=== PATIENT | female | born 1980 | race African-American/Black ===

== ENCOUNTER 2016-09-06 14:21 | Emergency (ER) | payer OTHER ==
--- NOTE | ~2016-09-06 | CR172 ---
[facility] A Service of [facility] RADIOLOGY TEXT RESULTS PATIENT: SHARI KRAMER LOCATION: [facility] : 76 UNIT #: [id number] AGE: [address]: Jose Connell MD SEX: F ORDER DR: [id number] [facility] [address] [place], [place] [address] [id number] E MR#: [id number] Acc #: [id number] NAME: SHARI KRAMER : 1980 SEX: F STUDY DATE/TIME: 09/06/2016 15:26 UNIT: [facility] ROOM: STUDY DESCRIPTION: CR Knee 3 Views Lt Attending Physician: Jose Connell M.D. Ordering Physician: [facility] Primary Care Physician: No Primary Care Physician MEDICAL IMAGING REPORT This report is preliminary unless electronic signature is present EXAM 3 views of the left knee 09/06/2016 HISTORY Pain and swelling, left thigh spasms starting 2 weeks ago. No known injury. FINDINGS No acute fracture or subluxation of the left knee is identified. There is no suprapatellar effusion. Patient really has minimal degenerative change. No aggressive osseous abnormalities are seen. IMPRESSION Negative. Dictated by... April Byrd M.D. THIS IS AN ELECTRONICALLY VERIFIED REPORT April Byrd M.D. at 09/07/2016 5:23 PM AFF/enrique TD: 09/06/2016 18:07 JOB #: [id number] MEDICAL IMAGING REPORT Page 1 of 1 COPY
--- NOTE | ~2016-09-06 | CT71 ---
[facility] A Service of [facility] RADIOLOGY TEXT RESULTS PATIENT: SHARI KRAMER LOCATION: [facility] : 76 UNIT #: [id number] AGE: [address]: Jose Connell MD SEX: F ORDER DR: [id number] [facility] [address] [place], [place] [address] [id number] E MR#: [id number] Acc #: [id number] NAME: SHARI KRAMER : 1980 SEX: F STUDY DATE/TIME: 09/06/2016 16:27 UNIT: [facility] ROOM: STUDY DESCRIPTION: CT Head Wo Contrast Attending Physician: Jose Connell M.D. Ordering Physician: Ed Doctor [id number] [facility] Primary Care Physician: Primary Care Physician No MEDICAL IMAGING REPORT This report is preliminary unless electronic signature is present EXAM CT head INDICATION Headache. Nausea. Frontal headache. Numbness in the lips. Facial numbness. TECHNIQUE CT of the head without contrast. This CT exam was performed with one or more of the following radiation dose reduction techniques: automatic exposure control, adjustment of mA and/or kV according to patient size, and iterative reconstruction. COMPARISON None available. FINDINGS Axial noncontrast images were obtained from the skull base to the vertex. Ventricular size and configuration are normal. There is no evidence of acute infarct or hemorrhage. There are no extra-axial fluid collections. No mass lesion or mass effect is seen. There are no skull fractures. IMPRESSION Normal noncontrast head CT. Dictated by... Zhang Caro M.D. THIS IS AN ELECTRONICALLY VERIFIED REPORT Zhang Caro M.D. at 09/06/2016 10:05 PM [facility]mairlee [facility] A Service [facility] RADIOLOGY TEXT RESULTS PATIENT: SHARI KRAMER LOCATION: [facility] : 76 UNIT #: [id number] AGE: [address]: Jose Connell MD SEX: F ORDER DR: TD: 09/06/2016 20:29 JOB #: [id number] MEDICAL IMAGING REPORT Page 1 of 1 COPY
== END 2016-09-06 17:45 | disposition home or self-care (01) ==
LOC: CED 14:21
DX: R51 Headache (principal); M25.561 Pain in right knee; F17.210 Nicotine dependence, cigarettes, uncomplicated
CPT/HCPCS: 36415; 70450; 73562; 84703; 96361; 96374; 96375; 99284; J1200; J1885; J2765